=== PATIENT | male | born 1955 | race Caucasian/White ===

== ENCOUNTER → 2017-05-08 | Outpatient (CLI) | payer MEDICARE, OTHER | END | disposition home or self-care (01) | LOC: PCVCIMAG 16:00 | DX: I73.9 Peripheral vascular disease, unspecified (principal); I70.8 Atherosclerosis of other arteries; L97.909 Non-pressure chronic ulcer of unspecified part of unspecified lower leg with unspecified severity | CPT/HCPCS: 36415; 93925 ==

== ENCOUNTER → 2017-05-20 | Outpatient (CLI) | payer MEDICARE ==
[~2017-05-20] MED LIST: ASPIRIN 325 MG TABLET; CLOPIDOGREL BISULFATE 75 MG TABLET; DIAZEPAM 10 MG TABLET.; EPTIFIBATIDE BOLUS 2,000 MCG/ML 10ML VIAL. IV; HEPARIN SODIUM 5,000 UNIT/ML VIAL for PCVC.; IODIXANOL 270 MG/ML 100 ML VIAL.; IV NORMAL SALINE 1000ML BAG 1,000 ML; LIDOCAINE 1% Multi-Dose 20 ML VIAL.; MIDAZOLAM HCL/PF 2 MG/2 ML VIAL.; ceFAZolin SODIUM 1 GM VIAL; fentaNYL PF VIAL 100 MCG/2 ML VIAL; hydrALAZINE 20 MG/ML VIAL.
== END | disposition home or self-care (01) ==
LOC: PCVCINTER 09:52
DX: I70.1 Atherosclerosis of renal artery (principal); I70.203 Unspecified atherosclerosis of native arteries of extremities, bilateral legs; I10 Essential (primary) hypertension; I70.90 Unspecified atherosclerosis; L97.929 Non-pressure chronic ulcer of unspecified part of left lower leg with unspecified severity; I70.213 Atherosclerosis of native arteries of extremities with intermittent claudication, bilateral legs
CPT/HCPCS: 36252; 37186; 37227; 75716; 76937; 99153; C1725; C1751; C1757; C1760; C1769; C1876; C1885; C1894; C2623; J0360; J0690; J1327; J1644; J2250; J3010; J7030

== ENCOUNTER → 2017-08-29 | Outpatient (CLI) | payer MEDICARE | END | disposition home or self-care (01) | LOC: PCVCIMAG 14:19 | DX: I65.23 Occlusion and stenosis of bilateral carotid arteries (principal); I73.9 Peripheral vascular disease, unspecified; I48.91 Unspecified atrial fibrillation; I77.9 Disorder of arteries and arterioles, unspecified; I10 Essential (primary) hypertension; G82.20 Paraplegia, unspecified; Z79.899 Other long term (current) drug therapy; Z88.8 Allergy status to other drugs, medicaments and biological substances | CPT/HCPCS: 93880; 93926; G0463 ==

== ENCOUNTER → 2018-04-28 | Outpatient (CLI) | payer MEDICARE ==
--- NOTE | 2018-04-28 10:06 | PCVCIMAG ---
EXAM: BILATERAL LOWER EXTREMITY ARTERIAL DUPLEX INDICATION: Peripheral Arterial Disease. Leg pain. FINDINGS: Right Leg: Common femoral and profunda femoral arteries are patent. Superficial femoral artery and popliteal arteries are patent. Occlusion throughout the anterior tibial artery and distal peroneal artery. Posterior tibial artery shows adequate patency throughout. Left Leg: Common femoral and profunda femoral arteries are patent. Superficial femoral artery and popliteal arteries are patent. Previous stent distal superficial femoral artery maintaining good patency. The anterior tibial artery is occluded throughout its length and this is unchanged. The peroneal artery and posterior tibial arteries are patent. 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 Otherwise no flow limiting stenosis in the right lower extremity. Unchanged occlusion left anterior tibial artery. Otherwise no flow limiting stenosis in the left lower extremity. Previous left superficial femoral artery stent maintaining good patency. LOC:[id number]
== END | disposition home or self-care (01) ==
LOC: PCVCIMAG 08:48
PROVIDERS: ATTEND Internal Medicine Cardiovascular Disease
DX: I73.9 Peripheral vascular disease, unspecified (principal); I77.9 Disorder of arteries and arterioles, unspecified; I10 Essential (primary) hypertension; I48.91 Unspecified atrial fibrillation; G82.20 Paraplegia, unspecified; F17.200 Nicotine dependence, unspecified, uncomplicated; S81.801A Unspecified open wound, right lower leg, initial encounter; X58.XXXA Exposure to other specified factors, initial encounter; Y93.89 Activity, other specified; Y92.89 Other specified places as the place of occurrence of the external cause; Y99.8 Other external cause status
CPT/HCPCS: 93925; G0463

== ENCOUNTER → 2019-02-09 | Outpatient (CLI) | payer MEDICARE ==
--- NOTE | 2019-02-09 08:44 | PCVCIMAG ---
APPROVED REPORT Laterality: Bilateral Doppler Spectral Velocity Analysis PSV / EDVPSV / EDV ECA (R) 104 / 18 cm/sECA (L) 112 / 12 cm/s dICA (R) 72 / 23 cm/sdICA (L) 63 / 15 cm/s Francia (R) 67 / 26 cm/smICA (L) 95 / 23 cm/s pICA (R) 78 / 24 cm/spICA (L) 108 / 35 cm/s Bulb (R) 74 / 23 cm/sBulb (L) 77 / 16 cm/s dCCA (R) 82 / 23 cm/sdCCA (L) 92 / 26 cm/s mCCA (R) 90 / 21 cm/smCCA (L) 96 / 23 cm/s Vert (R) 55 / 13 cm/sVert (L) 38 / 8 cm/s ICA/CCA 0.95 ICA/CCA 1.17 Findings The right carotid bulb has mild calcified plaque. The right proximal internal carotid artery shows <40% stenosis. The right common carotid artery shows no significant stenosis. The right external carotid artery shows no significant stenosis. The left carotid bulb has moderate heterogeneous plaque. The left proximal internal carotid artery shows <40% stenosis. The left common carotid artery shows no significant stenosis. The left external carotid artery shows no significant stenosis. Conclusion 1. Right internal carotid artery stenosis (<40%). 2. Left internal carotid artery stenosis (<40%). 3. Antegrade vertebral flow.
--- NOTE | 2019-02-09 10:43 | PCVCIMAG ---
EXAM: BILATERAL LOWER EXTREMITY ARTERIAL DUPLEX INDICATION: Peripheral Arterial Disease. Leg pain. FINDINGS: Right Leg: Common femoral profunda femoral arteries are patent. Superficial femoral artery and popliteal artery are patent. The anterior tibial artery shows complete occlusion. The peroneal and posterior tibial arteries are patent. Left Leg: Common femoral profunda femoral arteries are patent. Superficial femoral artery and popliteal artery are patent. Previous stent distal superficial femoral artery is patent. Distal anterior tibial artery and dorsalis pedis are occluded. Peroneal artery and posterior tibial artery are patent. IMPRESSION: Occlusion right anterior tibial artery. Otherwise no flow limiting stenosis in the right lower extremity. Occlusion distal left anterior tibial artery. Otherwise no flow limiting stenosis in the left lower extremity. Previous distal left superficial femoral artery stent is patent. LOC:[id number]
== END | disposition home or self-care (01) ==
LOC: PCVCIMAG 08:09
PROVIDERS: ATTEND Internal Medicine Cardiovascular Disease
DX: I65.23 Occlusion and stenosis of bilateral carotid arteries (principal); I70.201 Unspecified atherosclerosis of native arteries of extremities, right leg; S81.801D Unspecified open wound, right lower leg, subsequent encounter; E78.5 Hyperlipidemia, unspecified; I10 Essential (primary) hypertension; I48.91 Unspecified atrial fibrillation; I71.3 Abdominal aortic aneurysm, ruptured; F17.200 Nicotine dependence, unspecified, uncomplicated; Z86.74 Personal history of sudden cardiac arrest; Z80.9 Family history of malignant neoplasm, unspecified; Z79.899 Other long term (current) drug therapy; X58.XXXD Exposure to other specified factors, subsequent encounter
CPT/HCPCS: 36415; 80061; 93005; 93880; 93925; G0463